=== PATIENT | male | born 1990 | race Caucasian/White ===

== ENCOUNTER 2023-02-07 14:00 | Day surgery (SDC) | payer MEDICAID, SELFPAY ==
[2023-02-07] VITALS (13 sets, daily range): BP systolic 106–146; BP diastolic 60–84; PULSE 62–112; RESP 16–84; TEMP 36.1–37.1; O2SAT 99–100; BMI 25.1
[2023-02-07] MEDS: HYDROmorphone 0.5 mg/0.5 ml inj IVP (14:00)
[2023-02-07] MEDS: 0.9 % SODIUM CHLORIDE 1000 ml 1,000 ML IV (14:15)
[2023-02-07] MEDS: KETOROLAC 30 MG/ML inj IVP (14:15)
--- NOTE | 2023-02-07 14:19 | CRLHL7_ITS ---
For Patients: As a result of the Century Cures Act, medical imaging exams and procedure reports are released immediately into your electronic medical record. You may view this report before your referring provider. If you have questions, please contact your health care provider. Indication: Left-sided peritonsillar abscess Technique: Volumetric multidetector CT images of the cervical soft tissues were obtained after the administration of low osmolar intravenous contrast. 85 cc Isovue 370 low osmolar intravenous contrast Comparison: None available. Findings: The partially visualized brain parenchyma is normal in attenuation without evidence of abnormal enhancement. The orbits and their contents are within normal limits. The paranasal sinuses are clear. The mastoid air cells are clear. The nasopharynx is unremarkable. The fossae of Rosenmuller are clear. There is demonstration of a bulky, enlarged left palatine tonsil with a 2.5 x 1.6 centimeter intra tonsillar abscess. There is moderate reactive enlargement of the right palatine tonsil and base of tongue mucosa. The hypopharynx is clear. The deep spaces of the neck are otherwise preserved. The vocal folds are nonthickened with symmetrical appearance. The thyroid gland is normal in attenuation. There are enlarged, reactive cervical lymph nodes. The jugular veins are patent. The carotid arteries demonstrate no significant atherosclerotic narrowing. The lung apices are clear. There is mild spasmodic straightening of the normal cervical lordosis without evidence of significant spondylolisthesis. Impression: Bulky enlargement of the left palatine tonsil with demonstration of a 2.5 x 1.6 centimeter intra tonsillar abscess consistent with tonsillitis and abscess formation. No evidence of peritonsillar extension. Please note that all CT scans at this facility use dose modulation, iterative reconstruction, and/or weight-based dosing when appropriate to reduce radiation dose to as low as reasonably achievable. Dictated by Benedict Silveira MD @ 02/07/2023 3:32:14 PM (Electronically Signed)
--- NOTE | 2023-02-07 14:39 | ED_ITS ---
HPI - General Adult General Date Seen: 02/07/23 Chief complaint: Dental/Oral/Mouth Injury/Pain Stated complaint: Throat pain - talked to Dr. Alba Time Seen by Provider: 02/07/23 14:03 Source: patient and family Mode of arrival: ambulatory Limitations: no limitations History of Present Illness HPI narrative: Patient is a 32-year-old gentleman who presents here with his mother for evaluation of left-sided throat swelling he was seen at the [facility] today and transferred over here, with persistent issues. He was seen any 2 hours ago at the [facility], where he had a CT scan which showed a peritonsillar abscess and had this needle there. Initially felt better for approximately a day but now is worsen. With increasing swelling decreased oral intake, low-grade fever at home along with chills. No previous history of tonsils issues. He is taking clindamycin, oxycodone, for the discomfort. Associated symptoms: fever/chills Related Data Home Medications Medication Instructions Recorded Confirmed clindamycin HCl 150 mg capsule 150 mg PO 3XD 02/07/23 02/07/23 oxycodone 5 mg tablet 5 mg PO Q8H 02/07/23 02/07/23 Allergies Allergy/AdvReac Type Severity Reaction Status Date / Time No Known Drug Allergies Allergy Verified 02/07/23 14:09 Review of Systems Status of ROS: Reports: 10 or more systems reviewed and unremarkable except as noted in History and below Exam Narrative: Exam Narrative: Patient is seen in room 4, he is in no apparent distress, speaking to me normally with normal phonation pattern, mouth opening shows 3 fingers but probably little bit of trismus, there is a large amount of swelling over the left tonsil, and soft tissue, consistent with likely an abscess. Almost encroaches on the uvula. Right side appears normal, lymphadenopathy is 1 to 2+ on the left side 1+ on the right. His neck is supple full range of motion of extension flexion is noted. Chest is clear heart sounds are normal abdomen is soft. I discussed with him we will need to get ENT involved start an IV do soft tissue neck, pain medication with Toradol and Dilaudid, fluids, NPO status, and likely an operating room visit. Const: Vital Signs, click to edit/add: Vital Signs - 24 hr 02/07/23 14:04 Temperature 97.2 F L Pulse Rate [Right Pulse Oximeter] 62 Respiratory Rate 16 Blood Pressure [Ri ght Upper Arm] 106/71 Pulse Oximetry 100 Oxygen Delivery Me thod Room Air Course Course Hospital Course: Spoke to Dr. Gary from [facility], he reviewed with me the findings common study taken to the operating room for a drainage, reviewed this with the patient, the chance of doing a tonsillectomy, he would like some Unasyn, we will do this. Patient is fit for surgery ASA 1, please consider my ER note the H&P Vital Signs Vital signs: Initial Vital Signs Temperature 97.2 F L 02/07/23 14:04 Temperature Source Temporal Artery Scan 02/07/23 14:04 Pulse Rate 62 02/07/23 14:04 Respiratory Rate 16 02/07/23 14:04 Blood Pressure 106/71 02/07/23 14:04 Blood Pressure Mean 82 02/07/23 14:04 Blood Pressure Position Sitting 02/07/23 14:04 Pulse Oximetry 100 02/07/23 14:04 Oxygen Delivery Method Room Air 02/07/23 14:04 Vital Signs Temperature 97.2 F L 02/07/23 14:04 Pulse Rate 62 02/07/23 14:04 Respiratory Rate 16 02/07/23 14:04 Blood Pressure 106/71 02/07/23 14:04 Pulse Oximetry 100 02/07/23 14:04 Oxygen Delivery Method Room Air 02/07/23 14:04 Temperature 97.2 F L 02/07/23 14:04 Pulse Rate 62 02/07/23 14:04 Respiratory Rate 16 02/07/23 14:04 Blood Pressure 106/71 02/07/23 14:04 Pulse Oximetry 100 02/07/23 14:04 Oxygen Delivery Method Room Air 02/07/23 14:04 Medical Decision Making MDM Narrative Medical decision making narrative: During this evaluation I considered multiple diagnosis good peritonsillar abscess, epiglottitis, tooth abscess, Abdiel's angina, l'mieres syndrome, strep pharyngitis, mononucleosis, cervical lymphadenopathy, salivary duct both stone in tumor. Lab Data Lab results reviewed: Yes I reviewed the patient's lab results Labs: Lab Results 02/07/23 Range/Units 14:29 WBC 8.93 (4.50-11.00) K/uL RBC 5.11 (4.30-5.90) m/uL Hgb 15.5 (13.5-17.5) gm/dL Hct 46.1 (37.0-53.0) % MCV 90 (80-100) fL MCH 30 (26-34) pg MCHC 34 (32-36) gm/dL RDW Coeff of Erin 12.6 (11.5-15.5) % Plt Count 277 (140-440) K/uL Neut % (Auto) 68.3 (42.0-72.0) % Lymph % (Auto) 17.7 L (20-44) % Evans % (Auto) 10.1 (0.0-11.0) % Eos % (Auto) 3.4 (0.0-7.0) % Baso % (Auto) 0.4 (0.0-3.0) % Neut # (Auto) 6.10 (1.7-7.0) K/uL Lymph # (Auto) 1.60 (0.90-2.90) K/uL Evans # (Auto) 0.90 (0.00-0.90) K/UL Eos # (Auto) 0.30 (0.00-0.50) K/uL Baso # (Auto) 0.04 (0.00-0.30) K/uL Sodium 137 (135-149) mmol/L Potassium 4.3 (3.6-5.1) mmol/L Chloride 97 (96-114) mmol/L Carbon Dioxide 32 (20-32) mmol/L BUN 15 (5-24) mg/dL Creatinine 0.8 (0.5-1.5) mg/dL Estimated Creat Clear 138.14 Estimated GFR 121 ml/min Glucose 82 (60-115) mg/dL Calcium 9.3 (8.4-10.6) mg/dL C-Reactive Protein 3.5 H (0.5-1.0) mg/dL Imaging Data Soft tissue neck: Attestation: I have reviewed the pertinent imaging results. My impression: Abscess that is it least 2 x 1 cm Radiologist's impression: Patient: GEORGETTE HOFFMAN Facility:?[facility] Patient ID:?[id number] Site Patient ID:?[id number]. Site :?[id number] Study:?CT ST Neck W/ 85CC [id number]-012-0/12/2023 2:37:56 PM Ordering Physician:Teddy Jacques Final Report: Indication: Left-sided peritonsillar abscess Technique: Volumetric multidetector CT images of the cervical soft tissues were obtained after the administration of low osmolar intravenous contrast. 85 cc Isovue 370 low osmolar intravenous contrast Comparison: None available. Findings: The partially visualized brain parenchyma is normal in attenuation without evidence of abnormal enhancement. The orbits and their contents are within normal limits. The paranasal sinuses are clear. The mastoid air cells are clear. The nasopharynx is unremarkable. The fossae of Rosenmuller are clear. There is demonstration of a bulky, enlarged left palatine tonsil with a 2.5 x 1.6 centimeter intra tonsillar abscess. There is moderate reactive enlargement of the right palatine tonsil and base of tongue mucosa. The hypopharynx is clear. The deep spaces of the neck are otherwise preserved. The vocal folds are nonthickened with symmetrical appearance. The thyroid gland is normal in attenuation. There are enlarged, reactive cervical lymph nodes. The jugular veins are patent. The carotid arteries demonstrate no significant atherosclerotic narrowing. The lung apices are clear. There is mild spasmodic straightening of the normal cervical lordosis without evidence of significant spondylolisthesis. Impression: Bulky enlargement of the left palatine tonsil with demonstration of a 2.5 x 1.6 centimeter intra tonsillar abscess consistent with tonsillitis and abscess formation. No evidence of peritonsillar extension. Please note that all CT scans at this facility use dose modulation, iterative reconstruction, and/or weight-based dosing when appropriate to reduce radiation dose to as low as reasonably achievable. Dictated by Benedict Silveira MD @ 02/07/2023 3:32:14 PM (Electronic Signature) Discharge Plan Discharge Clinical Impression: Abscess, peritonsillar Patient Disposition: XFER to OR Condition: Stable Prescriptions: No Action clindamycin HCl 150 mg capsule 150 mg PO 3XD oxycodone 5 mg tablet 5 mg PO Q8H Follow Up/Referrals: Provider,Not a Local [Primary Care Provider] -
[2023-02-07 14:42] LABS: Basophils Absolute Auto 0.04 K/uL (0.00-0.30); Basophils Percent Auto 0.4 % (0.0-3.0); Eosinophils Percent Auto 3.4 % (0.0-7.0); Hematocrit 46.1 % (37.0-53.0); Hemoglobin* 15.5 gm/dL (13.5-17.5); Immature Granulocytes Abs Auto 0.01 K/uL (0.00-0.30); Immature Granulocytes Pct Auto 0.1 %; Lymphocytes Percent Auto 17.7 % (20-44); Mean Corpuscular HGB Conc 34 gm/dL (32-36); Mean Corpuscular Hemoglobin 30 pg (26-34); Mean Corpuscular Volume 90 fL (80-100); Monocytes Percent Auto 10.1 % (0.0-11.0); Neutrophils Percent Auto 68.3 % (42.0-72.0); Platelet Count* 277 K/uL (140-440); RDW Coefficient of Variation % 12.6 % (11.5-15.5); Red Blood Count 5.11 m/uL (4.30-5.90); White Blood Count* 8.93 K/uL (4.50-11.00)
[2023-02-07 14:44] LABS: Slide Review Reflex No
[2023-02-07 14:56] LABS: Chloride* 97 mmol/L (96-114); Potassium* 4.3 mmol/L (3.6-5.1); Sodium* 137 mmol/L (135-149)
[2023-02-07 14:59] LABS: Creatinine* 0.8 mg/dL (0.5-1.5); Est. Creatinine Clearance* 138.14; Estimated Glomerular Filt Rate 121 ml/min
[2023-02-07 15:00] LABS: Blood Urea Nitrogen* 15 mg/dL (5-24); Calcium* 9.3 mg/dL (8.4-10.6); Carbon Dioxide* 32 mmol/L (20-32); Glucose* 82 mg/dL (60-115)
[2023-02-07 15:03] LABS: C Reactive Protein* 3.5 mg/dL (0.5-1.0)
[2023-02-07] MEDS: AMPICILLIN/SULBACTAM 3 GM in 0.9 % SODIUM CHLORIDE Mini-bag 100 ML IVPB (15:59)
--- NOTE | 2023-02-07 18:54 | P.ANES_ITS ---
Anesthesia Charges Start Date/Time Anesthesia Start Date: 02/07/23 Anesthesia Start Time: 17:51 Stop Date/Time Anesthesia Stop Date: 02/07/23 Anesthesia Stop Time: 18:53 Summary Emergency: [employer]
--- NOTE | 2023-02-07 18:58 | PM.PROC ---
Procedure Note Date Seen: 02/07/23 Date of procedure: 02/07/23 Will [facility] bill your pro fee for this procedure?: Yes Pre-op diagnosis: left peritonsil abscess Post-op diagnosis: same Procedure: joel tonsillectomy Procedure Description: Patient was seen in the emergency room for sore throat and a CT scan of the neck revealed a 2.5 x 1.6 cm intra tonsillar and peritonsillar abscess on the left side. For this reason we elected to proceed to the operating room for incision and drainage with possible tonsillectomy. Discussed goals, risks and potential complications of procedure with patient and mother. Discussed possible Joel tonsillectomy left. Discussed recommendation of removal of right tonsil at the same time. They elected to proceed and signed consent was obtained. Patient was brought to the operating room and after adequate general oral endotracheal anesthesia, was prepped and draped in the supine Marie position. Mouth gag was inserted in the oropharynx was exposed. Had enlarged left tonsil with peritonsillar erythema. CT scan noted the abscess in the superior midportion of the tonsil and peritonsillar region. Incision was made in the anterior pillar between superior midportion. With blunt dissection along tonsil capsule I did enter into a large cavity. There was no obvious pus. Given the size incision in the size of his cavity elected to proceed with tonsillectomy. The remainder of the tonsil was dissected free with electro blunt dissection using the spatula tip cautery and suction cautery. There was significant amount of edema of the muscle and the tonsil tissue. Hemostasis was achieved with the suction cautery. The right tonsil was smaller and exophytic. Tonsil was grasped with the forceps and with medial traction anterior-posterior pillar was incised and the tonsil was dissected free with these past tip cautery. Hemostasis was achieved with the suction cautery. Patient tolerated procedure well, was awakened and extubated in the operating room and returned to recovery room in stable condition. Right left tonsils were sent to pathology. Estimated blood loss was less than 5 mL. Anesthesia: LENOREA Surgeon: Niyah Gary Pathology: specimen obtained, sent to pathology Condition: stable Disposition: PACU
--- NOTE | 2023-02-07 19:23 | SUR.PHASEI ---
patient met discharge criteria per Renny Doe (anesthesia)
--- NOTE | 2023-02-08 00:41 | PC.NURSE ---
Patient admitted to floor at 1923 post tonsillectomy and abscess drainage. Alert and oriented x 4, reports pain at 3/10, pain is acceptable at 3. No bleeding noted. bowel sounds active x 4 quadrants. Lung sounds clear, denies any shortness of breath or cough. Tolerating ice chips and water, denies any nausea or vomiting. Mother bedside, she will be with patient to monitor. Discharged at 2105, ambulated and in private vehicle.
== END 2023-02-07 21:10 | disposition home or self-care (01) ==
LOC: ED 16:03 → SS 16:21
PROVIDERS: Emergency Provider Family Medicine; Visit Provider Otolaryngology
PROC: 0C9PXZZ Drainage of Tonsils, External Approach (ICD-10-PCS; CPT 42700; principal; 2023-02-07 17:30)
DX: J36 Peritonsillar abscess (principal)
CPT/HCPCS: 42826; 00170; 36415; 70491; 80048; 85025; 86140; 88304; 99140; 99284; J0295; J0330; J1100; J1170; J1200; J1885; J2405; J2704; J3010; J7030; Q9967

== ENCOUNTER 2023-07-30 11:39 | Emergency (ER) | payer MEDICAID, SELFPAY ==
[2023-07-30 11:48] VITALS: BP 117/77; PULSE 104; RESP 20; TEMP 36.8; BMI 24.4
--- NOTE | 2023-07-30 12:00 | ED_ITS ---
HPI - General Adult General Chief complaint: Urogenital Problems, Male Stated complaint: Suspected kidney infection Time Seen by Provider: 07/30/23 11:40 History of Present Illness HPI narrative: Patient is a 33 year white male who yesterday report he had onset of dysuria some gross hematuria, some body aches chills. Some low back discomfort no CVA area tenderness. He has been healthy other than a history of a peritonsillar abscess. Takes no home medications. He is feeling better today, less dysuria, less blood in his urine, less body aches. But he still feels a little bit ill. Presents to ED for evaluation he is here with his significant other. He has not had a head history kidney stones or bladder infections, he has been generally quite healthy. Related Data Home Medications Medication Instructions Recorded Confirmed clindamycin HCl 150 mg capsule 150 mg PO 3XD 02/07/23 02/07/23 oxycodone 5 mg tablet 5 mg PO Q8H 02/07/23 02/07/23 Previous Rx's Medication Instructions Recorded oxycodone 5 mg/5 mL oral solution 5 mg (5 mL) PO Q4H PRN pain #200 mL 02/07/23 amoxicillin 500 mg-potassium 1 tab PO BID #14 tabs 07/30/23 clavulanate 125 mg tablet (Augmentin) Allergies Allergy/AdvReac Type Severity Reaction Status Date / Time No Known Drug Allergies Allergy Verified 02/07/23 14:09 Review of Systems Status of ROS: Reports: 6 or more systems reviewed and unremarkable except as noted in History and below Exam Narrative: Exam Narrative: Objective: In general patient is no apparent distress Vital signs look within normal limits others pulse slightly elevated 104 He is afebrile HEENT is unremarkable Chest is clear Pulse regular Abdomen benign soft nontender Ext negative CVA tenderness Good peripheral perfusion extremities. Const: Vital Signs, click to edit/add: Vital Signs - 24 hr 07/30/23 11:48 07/30/23 14:14 Temperature 98.3 F Pulse Rate [Pulse Oximeter] 104 H 103 H Respiratory Rate 20 16 Blood Pressure [Ri ght Upper Arm] 117/77 125/79 Pulse Oximetry 100 Oxygen Delivery Me thod Room Air Course Vital Signs Vital signs: Initial Vital Signs Temperature 98.3 F 07/30/23 11:48 Temperature Source Temporal Artery Scan 07/30/23 11:48 Pulse Rate 104 H 07/30/23 11:48 Pulse Strength 2+ Slightly Diminished 07/30/23 11:48 Respiratory Rate 20 07/30/23 11:48 Blood Pressure 117/77 07/30/23 11:48 Blood Pressure Mean 90 07/30/23 11:48 Blood Pressure Position Sitting 07/30/23 11:48 Vital Signs Temperature 98.3 F 07/30/23 11:48 Pulse Rate 104 H 07/30/23 11:48 Respiratory Rate 20 07/30/23 11:48 Blood Pressure 117/77 07/30/23 11:48 Temperature 98.3 F 07/30/23 11:48 Pulse Rate 103 H 07/30/23 14:14 Respiratory Rate 16 07/30/23 14:14 Blood Pressure 125/79 07/30/23 14:14 Pulse Oximetry 100 07/30/23 14:14 Oxygen Delivery Method Room Air 07/30/23 14:14 Medications Administered Medications: Discontinued Medications Generic Name Dose Route Start Last Admin Trade Name Freq PRN Reason Stop Dose Admin Acetaminophen 1,000 mg 07/30/23 14:15 07/30/23 14:18 Acetaminophen 500 Mg Tablet PO 07/30/23 14:16 1,000 mg ONCE ONE Administration Ceftriaxone Sodium 2 gm/ 100 mls @ 200 mls/hr 07/30/23 13:41 07/30/23 14:27 Sodium Chloride IVPB 07/30/23 13:42 Infused ONCE ONE Infusion Medical Decision Making [facility] Narrative Medical decision making narrative: [age] white male with gross hematuria, chills body aches, rule out UTI. Patient will get lab studies, CRP, CBC, electrolytes. Will get a UA urine cul ture. Will get COVID/influenza/RSV as well. He has not really had a cough or upper respiratory symptoms but I think given his chills fever and body aches I think could be appropriate to rule out influenza. Will check his urinalysis preps rule out a UTI versus pyelonephritis. Does not appear to have significant CVA tenderness so I think likely this is not pyelonephritis. Please see addendum dictation. Addendum 1:46 p.m.: The patient has hematuria and pyuria. Would recommend a CT scan of his abdomen and pelvis without contrast to make sure that of a kidney stone or some kind of pyelonephritis perinephric stranding. Will give IV Rocephin now. And disposition pending CT findings. Addendum 2:[address] scan shows some nonobstructing punctate tiny stones within the kidneys, there is no obstructing stone, appendix appears normal. Patient be discharged home with urinary tract infection Augmentin for home and he got IV Rocephin here, follow-up with primary care in 2-3 days for recheck return sooner problems or concerns. Light activity recommended for the next couple of days. Lab Data Labs: Lab Results 07/30/23 07/30/23 Range/Units 12:00 13:15 WBC 8.05 (4.50-11.00) K/uL RBC 5.22 (4.30-5.90) m/uL Hgb 15.7 (13.5-17.5) gm/dL Hct 46.4 (37.0-53.0) % MCV 89 (80-100) fL MCH 30 (26-34) pg MCHC 34 (32-36) gm/dL RDW Coeff of Erin 12.8 (11.5-15.5) % Plt Count 192 (140-440) K/uL Neut % (Auto) 88.2 H (42.0-72.0) % Lymph % (Auto) 6.5 L (20-44) % Yates % (Auto) 4.1 (0.0-11.0) % Eos % (Auto) 0.6 (0.0-7.0) % Baso % (Auto) 0.5 (0.0-3.0) % Neut # (Auto) 7.10 H (1.7-7.0) K/uL Lymph # (Auto) 0.50 L (0.90-2.90) K/uL Yates # (Auto) 0.30 (0.00-0.90) K/UL Eos # (Auto) 0.05 (0.00-0.50) K/uL Baso # (Auto) 0.04 (0.00-0.30) K/uL Abs Immat Gran (auto) 0.01 (0.00-0.30) K/uL Imm/Tot Granulo (auto) 0.1 % Sodium 135 (135-149) mmol/L Potassium 4.0 (3.6-5.1) mmol/L Chloride 99 (96-114) mmol/L Carbon Dioxide 31 (20-32) mmol/L Anion Gap 5 L (7-15) mEq/L BUN 12 (5-24) mg/dL Creatinine 1.0 (0.5-1.5) mg/dL Estimated Creat Clear 109.50 Estimated GFR 103 ml/min Glucose 144 H (60-115) mg/dL Calcium 9.2 (8.4-10.6) mg/dL C-Reactive Protein 14.8 H (0.5-1.0) mg/dL Urine Color Red A (Yellow) Urine Appearance Slightly Cloudy A (Clear) Urine pH 5.5 (5.0-8.5) Ur Specific Landenberg 1.020 (1.000-1.030) Urine Protein 1+ A (Negative) Urine Glucose (UA) Trace A (Negative) Urine Ketones Negative (Negative) Urine Blood 1+ A (Negative) Urine Nitrite Positive A (Negative) Urine Bilirubin 1+ A (Negative) Urine Urobilinogen 1.0 (0.2-1.0) Ur Leukocyte Esterase Trace A (Negative) Urine RBC 5-10 A (0-2) Urine WBC 10-25 A (0-5) Ur Squamous Epith Cells Few (None-Few) Urine Bacteria Many A (None) SARS-CoV-2 (PCR) Negative SARS-CoV-2 (Negative) Influenza Type A (PCR) Negative PCR FLU A (Negative) Influenza Type B (PCR) Negative PCR FLU B (Negative) RSV (PCR) Negative PCR RSV (Negative) Discharge Plan Discharge Clinical Impression: Hematuria, Body aches, Urinary tract infection Patient Disposition: Home w/ Parent or Adult Condition: Stable Additional Instructions: Rest, fluids, recheck with primary care in 2-3 days, return sooner to ER sooner problems or concerns. Antibiotics at home as prescribed. Activity Level: Light activity Discharge Diet: Regular Prescriptions: New amoxicillin-pot clavulanate [Augmentin] 500-125 mg tablet 1 tab PO BID Qty: 14 0RF No Action clindamycin HCl 150 mg capsule 150 mg PO 3XD oxycodone 5 mg tablet 5 mg PO Q8H oxycodone 5 mg/5 mL solution 5 mg PO Q4H PRN (Reason: pain) Qty: 200 0RF Follow Up/Referrals: Provider,Not a Local [Primary Care Provider] - Stand Alone Forms: MyHealth Info Instructions
[2023-07-30 12:19] LABS: Basophils Absolute Auto 0.04 K/uL (0.00-0.30); Basophils Percent Auto 0.5 % (0.0-3.0); Eosinophils Absolute Auto 0.05 K/uL (0.00-0.50); Eosinophils Percent Auto 0.6 % (0.0-7.0); Hematocrit 46.4 % (37.0-53.0); Hemoglobin* 15.7 gm/dL (13.5-17.5); Immature Granulocytes Abs Auto 0.01 K/uL (0.00-0.30); Immature Granulocytes Pct Auto 0.1 %; Lymphocytes Percent Auto 6.5 % (20-44); Mean Corpuscular HGB Conc 34 gm/dL (32-36); Mean Corpuscular Hemoglobin 30 pg (26-34); Mean Corpuscular Volume 89 fL (80-100); Monocytes Percent Auto 4.1 % (0.0-11.0); Neutrophils Percent Auto 88.2 % (42.0-72.0); Platelet Count* 192 K/uL (140-440); RDW Coefficient of Variation % 12.8 % (11.5-15.5); Red Blood Count 5.22 m/uL (4.30-5.90); White Blood Count* 8.05 K/uL (4.50-11.00)
[2023-07-30 12:25] LABS: Slide Review Reflex No
[2023-07-30 12:32] LABS: Chloride* 99 mmol/L (96-114)
[2023-07-30 12:33] LABS: Sodium* 135 mmol/L (135-149)
[2023-07-30 12:36] LABS: Anion Gap 5 mEq/L (7-15); Blood Urea Nitrogen* 12 mg/dL (5-24); Carbon Dioxide* 31 mmol/L (20-32); Estimated Glomerular Filt Rate 103 ml/min
[2023-07-30 12:37] LABS: Calcium* 9.2 mg/dL (8.4-10.6); Glucose* 144 mg/dL (60-115)
[2023-07-30 12:50] LABS: C Reactive Protein* 14.8 mg/dL (0.5-1.0)
[2023-07-30 13:20] LABS: PCR FLU A Negative PCR FLU A (Negative); PCR FLU B Negative PCR FLU B (Negative); PCR RSV Negative PCR RSV (Negative)
[2023-07-30 13:28] LABS: SARS PCR* Negative SARS-CoV-2 (Negative)
[2023-07-30 13:30] LABS: Appearance Urine Slightly Cloudy (Clear); Bilirubin Urine 1+ (Negative); Blood Urine 1+ (Negative); Color Urine Red (Yellow); Glucose Urine Trace (Negative); Ketones Urine Negative (Negative); Leukocyte Esterase Urine Trace (Negative); Nitrite Urine Positive (Negative); Protein Urine 1+ (Negative); pH Urine 5.5 (5.0-8.5)
[2023-07-30 13:38] LABS: Bacteria Urine Many; Squamous Epithelial Cell Urine Few (None-Few)
--- NOTE | 2023-07-30 13:41 | CRLHL7_ITS ---
For Patients: As a result of the Century Cures Act, medical imaging exams and procedure reports are released immediately into your electronic medical record. You may view this report before your referring provider. If you have questions, please contact your health care provider. Indication: Back pain and urinary tract infection Technique: CT abdomen and pelvis acquired without IV contrast. Coronal and sagittal reformations. Comparison: None available Findings: Lack of IV contrast limits evaluation of the solid abdominal organs. Kidneys/ureters/bladder: 2 mm nonobstructing punctate stone in lower pole of right kidney. 1-2 mm stone in the interpolar region of left kidney. No hydronephrosis bilaterally. There are no stones identified along the course of either ureter. Urinary bladder is decompressed but otherwise unremarkable. Prostate size is within normal limits. Liver/bile ducts/gallbladder: Unremarkable noncontrast appearance of liver. Normal gallbladder. Pancreas: Unremarkable. Spleen: Unremarkable. Adrenals: Unremarkable. Bowel/Mesentery: No obstruction. No bowel wall thickening. No free air. No free fluid. Normal appendix. Lymph nodes: No enlarged mesenteric, retroperitoneal, pelvic, or inguinal lymphadenopathy. Vasculature: No aortic aneurysm. Lower chest: Visualized lung bases are clear. Bones: No acute or aggressive appearing osseous lesions. Impression: 1. No cause of acute abdominal pain identified in this limited noncontrast examination. Normal appendix. 2. Punctate bilateral nonobstructing stones identified. No hydronephrosis or ureterolithiasis. Please note that all CT scans at this facility use dose modulation, iterative reconstruction, and/or weight-based dosing when appropriate to reduce radiation dose to as low as reasonably achievable. Dictated by Salvador Butt MD @ 07/30/2023 2:51:02 PM (Electronically Signed)
[2023-07-30] MEDS: cefTRIAXone 2 GM in 0.9 % SODIUM CHLORIDE Mini-bag 100 ML IVPB (13:51)
[2023-07-30 14:14] VITALS: BP 125/79; PULSE 103; RESP 16; O2SAT 100
[2023-07-30] MEDS: ACETAMINOPHEN 500 MG TABLET 1000 MG PO (14:18)
== END 2023-07-30 15:00 | disposition home or self-care (01) ==
PROVIDERS: Emergency Provider Family Medicine
DX: N39.0 Urinary tract infection, site not specified (principal); R31.9 Hematuria, unspecified; R52 Pain, unspecified
CPT/HCPCS: 36415; 74176; 80048; 81001; 85025; 86140; 87086; 87186; 87631; 96365; 99284; A9270; J0696

== ENCOUNTER 2023-09-01 13:49 | Emergency (ER) | payer OTHER, SELFPAY ==
[2023-09-01 14:07] VITALS: BP 116/73; PULSE 105; RESP 16; TEMP 37; O2SAT 97; BMI 24.4
--- NOTE | 2023-09-01 15:12 | ED.WOUNDLAC ---
HPI - Wound/Laceration General Chief Complaint: Laceration/Wound Stated Complaint: Left hand fingers lac Time Seen by Provider: 09/01/23 14:44 History of Present Illness HPI narrative: This 33-year-old male was at work cutting a exhaust pipe when it slipped and fell onto his left hand. He has a laceration over the MP joints on the dorsal aspect of his left 4th and 5th fingers. His tetanus status is up-to-date. Related Data Home Medications Medication Instructions Recorded Confirmed clindamycin HCl 150 mg capsule 150 mg PO 3XD 02/07/23 02/07/23 oxycodone 5 mg tablet 5 mg PO Q8H 02/07/23 02/07/23 Previous Rx's Medication Instructions Recorded oxycodone 5 mg/5 mL oral solution 5 mg (5 mL) PO Q4H PRN pain #200 mL 02/07/23 amoxicillin 500 mg-potassium 1 tab PO BID #14 tabs 07/30/23 clavulanate 125 mg tablet (Augmentin) Allergies Allergy/AdvReac Type Severity Reaction Status Date / Time No Known Drug Allergies Allergy Verified 09/01/23 14:10 Review of Systems Status of ROS: Reports: 10 or more systems reviewed and unremarkable except as noted in History and below Narrative: Constitutional: No fevers, no weight gain or loss. Eyes: No discharge. No vision changes. HENT: No congestion, no sore throat, no ear pain. Cardiovascular: No chest pain, no palpitations. Respiratory: No shortness of breath, no wheezes, no cough. Gastrointestinal: No abdominal pain, no vomiting, no diarrhea. Genitourinary: No dysuria, no hematuria. Musculoskeletal: Normal range of motion. Skin: No rashes, no pruritis. Neurological: No dizziness, weakness, sensory change, speech change. Endo/Heme/Allergies: No bruising or bleeding. No polydipsia. Pysch: no suicidality, no anxiety, no insomnia. All other systems reviewed and are negative. Exam Narrative: Exam Narrative: Constitutional: Well-developed, well-nourished, no acute distress. HEENT: Normocephalic, atraumatic. Neck: Normal range of motion. Nontender. Supple. Heart: Intact distal pulses. Lungs: No chest discomfort. No wheezes, rhonchi, or rales. Abdomen: Nontender. Back: Normal range of motion. Extremities: Normal range of motion. 2 cm linear laceration over the dorsal aspect of the MP joint of the 4th finger on the left-hand and a superficial abrasion over the same area of the 5th finger on the same hand. Skin: Intact. No rash. Warm. No erythema or pallor. Neurologic: No altered sensation. No weakness. Alert and oriented. Psychiatric: No suicidality. No anxiety or depression. No insomnia. Nursing notes and vitals signs are reviewed. Const: Vital Signs, click to edit/add: Vital Signs - 24 hr 09/01/23 14:07 Temperature 98.6 F Pulse Rate [Right Pulse Oximeter] 105 H Respiratory Rate 16 Blood Pressure [Ri ght Upper Arm] 116/73 Pulse Oximetry 97 Oxygen Delivery Me thod Room Air Course Vital Signs Vital signs: Initial Vital Signs Temperature 98.6 F 09/01/23 14:07 Temperature Source Temporal Artery Scan 09/01/23 14:07 Pulse Rate 105 H 09/01/23 14:07 Pulse Rhythm Regular 09/01/23 14:07 Pulse Strength 3+ Normal 09/01/23 14:07 Respiratory Rate 16 09/01/23 14:07 Blood Pressure 116/73 09/01/23 14:07 Blood Pressure Mean 87 09/01/23 14:07 Blood Pressure Position Sitting 09/01/23 14:07 Pulse Oximetry 97 09/01/23 14:07 Oxygen Delivery Method Room Air 09/01/23 14:07 Vital Signs Temperature 98.6 F 09/01/23 14:07 Pulse Rate 105 H 09/01/23 14:07 Respiratory Rate 16 09/01/23 14:07 Blood Pressure 116/73 09/01/23 14:07 Pulse Oximetry 97 09/01/23 14:07 Oxygen Delivery Method Room Air 09/01/23 14:07 Temperature 98.6 F 09/01/23 14:07 Pulse Rate 105 H 09/01/23 14:07 Respiratory Rate 16 09/01/23 14:07 Blood Pressure 116/73 09/01/23 14:07 Pulse Oximetry 97 09/01/23 14:07 Oxygen Delivery Method Room Air 09/01/23 14:07 MDM - Wound/Laceration MDM Narrative Medical decision making narrative: This patient comes in with a laceration to his left hand as described above. His tetanus status is up-to-date. The wound was cleansed and his hand function was evaluated and found to be completely normal. There is no sign of nerve or tendon injury. I did describe repair options with the patient who elected to have Dermabond applied. This was done with excellent results and followed with a Band-Aid. Instructions regarding wound care were given. Discharge Plan Discharge Clinical Impression: Laceration Patient Disposition: Home, Self-Care Condition: Improved Additional Instructions: Keep wound clean and dry. Increase activity as tolerated. Follow up with MD return if worsening. Prescriptions: No Action amoxicillin-pot clavulanate [Augmentin] 500-125 mg tablet 1 tab PO BID Qty: 14 0RF clindamycin HCl 150 mg capsule 150 mg PO 3XD oxycodone 5 mg tablet 5 mg PO Q8H oxycodone 5 mg/5 mL solution 5 mg PO Q4H PRN (Reason: pain) Qty: 200 0RF Follow Up/Referrals: Provider,Not a Local [Primary Care Provider] - Stand Alone Forms: [place] Info Instructions
[2023-09-01] MEDS: TETANUS/DIPHTH/PERTUSSIS 0.5 ML SYRINGE IM (15:22)
== END 2023-09-01 15:26 | disposition home or self-care (01) ==
PROVIDERS: Emergency Provider Emergency Medicine Emergency Medical Services
DX: S61.412A Laceration without foreign body of left hand, initial encounter (principal); W45.8XXA Other foreign body or object entering through skin, initial encounter
CPT/HCPCS: 12001; 87631; 90471; 90715; 99284

== ENCOUNTER 2023-11-29 11:42 | Emergency (ER) | payer OTHER, SELFPAY ==
[2023-11-29 11:47] VITALS: BP 113/66; PULSE 88; RESP 16; TEMP 37; O2SAT 99; BMI 23.0
--- NOTE | 2023-11-29 12:49 | ED.GENADULT ---
HPI - General Adult General Date Seen: 11/29/23 Chief complaint: Laceration/Wound Stated complaint: finger laceration Time Seen by Provider: 11/29/23 11:48 Source: patient Mode of arrival: ambulatory Limitations: no limitations History of Present Illness HPI narrative: Patient is a 33-year-old male who was at work, sustained a laceration on his right 4th finger from a piece of sheet metal. Bleeding controlled, he notes that it bled and hurt a lot right away but now that he is looking at it he notes that it is not that bad. He has no complaints of numbness or loss of function. Tetanus was updated a couple months ago. Related Data Home Medications Medication Instructions Recorded Confirmed clindamycin HCl 150 mg capsule 150 mg PO 3XD 02/07/23 02/07/23 oxycodone 5 mg tablet 5 mg PO Q8H 02/07/23 02/07/23 Previous Rx's Medication Instructions Recorded oxycodone 5 mg/5 mL oral solution 5 mg (5 mL) PO Q4H PRN pain #200 mL 02/07/23 amoxicillin 500 mg-potassium 1 tab PO BID #14 tabs 07/30/23 clavulanate 125 mg tablet (Augmentin) Allergies Allergy/AdvReac Type Severity Reaction Status Date / Time No Known Drug Allergies Allergy Verified 09/01/23 14:10 Exam Narrative: Exam Narrative: Vital signs reviewed In general, alert well-appearing male. Extremities: Examination of the right 4th finger shows a superficial laceration just proximal to the PIP joint. Flexion extension at the PIP and MCP are intact. Distal CMS normal. Wound extends just into the dermis. It is just under a cm in total length. Const: Vital Signs, click to edit/add: Vital Signs - 24 hr 11/29/23 11:47 Temperature 98.6 F Pulse Rate [Pulse Oximeter] 88 Respiratory Rate 16 Blood Pressure [Ri ght Upper Arm] 113/66 Pulse Oximetry 99 Oxygen Delivery Me thod Room Air Documenting provider has reviewed patient's vital signs: yes Course Course ED Course: He did well with Dermabond to a finger laceration a couple of months ago. I think it is reasonable to use given the superficiality of this wound. Procedure note: Wound was cleaned, explored no evidence of injury to deeper structures. Closed with Dermabond with good result. Reviewed wound care, Dermabond care. I have given him a note to be off work today, ideally would keep this clean and protected while it heals. He takes apart cars for a living and says it is difficult for him to keep his hands very protected as he does not like to work in gloves. Return for signs of infection. Vital Signs Vital signs: Initial Vital Signs Temperature 98.6 F 11/29/23 11:47 Temperature Source Temporal Artery Scan 11/29/23 11:47 Pulse Rate 88 11/29/23 11:47 Respiratory Rate 16 11/29/23 11:47 Blood Pressure 113/66 11/29/23 11:47 Blood Pressure Mean 81 11/29/23 11:47 Pulse Oximetry 99 11/29/23 11:47 Oxygen Delivery Method Room Air 11/29/23 11:47 Vital Signs Temperature 98.6 F 11/29/23 11:47 Pulse Rate 88 11/29/23 11:47 Respiratory Rate 16 11/29/23 11:47 Blood Pressure 113/66 11/29/23 11:47 Pulse Oximetry 99 11/29/23 11:47 Oxygen Delivery Method Room Air 11/29/23 11:47 Temperature 98.6 F 11/29/23 11:47 Pulse Rate 88 11/29/23 11:47 Respiratory Rate 16 11/29/23 11:47 Blood Pressure 113/66 11/29/23 11:47 Pulse Oximetry 99 11/29/23 11:47 Oxygen Delivery Method Room Air 11/29/23 11:47 Discharge Plan Discharge Clinical Impression: Finger laceration Patient Disposition: Home, Self-Care Condition: Improved Instructions: Finger Laceration (ED), Skin Adhesive Care (ED) Additional Instructions: Return for signs of infection. Prescriptions: No Action amoxicillin-pot clavulanate [Augmentin] 500-125 mg tablet 1 tab PO BID Qty: 14 0RF clindamycin HCl 150 mg capsule 150 mg PO 3XD oxycodone 5 mg tablet 5 mg PO Q8H oxycodone 5 mg/5 mL solution 5 mg PO Q4H PRN (Reason: pain) Qty: 200 0RF Follow Up/Referrals: Provider,Not a Local [Primary Care Provider] - Stand Alone Forms: [facility] Info Instructions
== END 2023-11-29 12:13 | disposition home or self-care (01) ==
LOC: ED 12:08
PROVIDERS: Emergency Provider Emergency Medicine
DX: S61.214A Laceration without foreign body of right ring finger without damage to nail, initial encounter (principal); W45.8XXA Other foreign body or object entering through skin, initial encounter
CPT/HCPCS: 12001; 99282; 99283

== ENCOUNTER 2024-09-30 18:05 | Emergency (ER) | payer BC, SELFPAY ==
--- OUTSIDE RECORDS SUMMARY | 2024-09-30 18:07 | XMS_ITS | Clinical Summary ---
Author Organization [facility] Address [address] [place] [address]. [place] [address] Care Team Providers Care Managed Care Analyst Name Role Phone No Ref-Primary, Physician Primary Care Provider Allergies No known active allergies Medications triamcinolone 0.1 % EX external ointmentIndicati ons:Other eczema,Eczema, dyshidrotic Apply topically 2 times daily 80 g 1 0 Active Active Problems Problem Noted Date Diagnosed Date Fracture of mandible 04/09/2013 Tobacco use disorder 10/06/2011 Immunizations Name Administration Dates Next Due COVID-19 MONOVALENT 12+ (Pfizer) 03/30/2021 DTAP (<7y) 12/10/1996 HEPATITIS A (PEDS 12M-18Y) 05/08/2008,11/17/2006 Hepatitis B, Peds 02/12/2003,01/11/2002,11/28/19 02 MMR 11/27/2001 Meningococcal (Menomune ) 11/17/2006 TDAP Vaccine (Adacel) 04/02/2013,02/06/2009 Family History Medical History Relation Comments Atrial fibrillation Father Cerebrovascular Disease Father Diabetes Father Hypertension Father Lung Cancer Paternal Grandfather Lung Cancer Paternal Grandmother Relation Status Comments Father Alive Mother Alive Paternal Grandfather Paternal Grandmother Social History Tobacco Use Types Packs/Day Years Used Date Smoking Tobacco: Every Day Smokeless Tobacco: Never Tobacco Cessation:Counseling Given: No Alcohol Use Standard Drinks/Week Comments Yes 0 (1 standard drink = 0.6 oz pur e alcohol) PHQ-2 Answer Date Recorded PHQ-2 Score 0 02/14/2019 Sex and Gender Information Value Date Recorded Sex Assigned at Not on file 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 Gender Identity Not on file Sexual Orientation Not on file Last Filed Vital Signs Vital Sign Reading Time Taken Comments Blood Pressure 120/70 10/19/2019 2:48 PM SAILING MASTER Pulse 97 10/19/2019 2:48 PM SAILING MASTER Temperature 36.8 C (98.2 F) 10/19/2019 2:48 PM SAILING MASTER Respiratory Rate 16 10/19/2019 2:48 PM SAILING MASTER Oxygen Saturation 98% 10/19/2019 2:48 PM SAILING MASTER Inhaled Oxygen Concentration - - Weight 74.4 kg (164 lb) 10/19/2019 2:48 PM SAILING MASTER Height 177.8 cm (5' 10) 10/19/2019 2:48 PM SAILING MASTER Body Mass Index 23.53 10/19/2019 2:48 PM SAILING MASTER Plan of Treatment Health Maintenance Due Date Last Done Comments ADVANCE CARE PLANNING 1991 ANNUAL REVIEW OF HM ORDERS 1991 YEARLY PREVENTIVE VISIT 1991 HIV SCREENING 2006 HEPATITIS C SCREENING 2009 DTAP/TDAP/TD IMMUNIZATION (4 - Td or Tdap) 04/02/2023 04/02/2013, 02/06/2009, 12/10/1996 PHQ-2 (once per calendar year) 2023 02/14/2019, 02/14/2019, 07/31/2018 COVID-19 Vaccine (2 - 2023-2 5 season) 2024 03/30/2021 INFLUENZA VACCINE (#1) 2024 RSV VACCINE (1 - 1-dose 75+ series) 2066 HEPATITIS B IMMUNIZATION Completed 003, 01/11/2002, 11/27/2001 MENINGITIS IMMUNIZATION Aged Out 11/17/2006 No l onger eligible based on patient's age to complete this topic HPV IMMUNIZATION Aged Out No longer e ligible based on patient's age to complete this topic Pneumococcal Vaccine: Pediatrics (0 to 5 Years) and At-Risk Patients (6 to 49 Years) Aged Out No longer eligible b ased on patient's age to complete this topic RSV MONOCLONAL ANTIBODY Aged Out No l onger eligible based on patient's age to complete this topic Care Teams Managed Care Analyst Relationship Specialty Start Date End Date No Ref-Primary, Physician PCP - General 10/19/19
--- OUTSIDE RECORDS SUMMARY | 2024-09-30 18:07 | XMS_ITS | Clinical Summary ---
Author Organization [facility] Address [place], [place] [address] Care Team Providers Care Brush Polisher Name Role Phone Pcp, No Primary Care Provider Unavailabl e Allergies No known active allergies Medications ibuprofen (ADVIL; MOTRIN) 600 mg tablet TAKE 1 TABLET BY MOUTH 3 TIMES PER DAY 09/29/2022 Active Active Problems Problem Noted Date Diagnosed Date Closed fracture of mandible 04/09/2013 Tobacco use disorder 10/06/2011 Immunizations Name Administration Dates Next Due DTaP 12/10/1996 Hepatitis A (Peds) 05/08/2008,11/17/2006 Hepatitis B (Peds) 02/12/2003,01/11/2002, 002 MMR 11/27/2001 Meningococcal Vaccine (Menomune) 11/17/2006 Td (Age >=7 Years) 02/12/2003 Tdap 09/01/2023,04/02/2013,02/06/2009 Social History Tobacco Use Types Packs/Day Years Used Date Smoking Tobacco: Every Day Cigarettes 0.3 2 Started: 08/29/2008 Passive Smoke Exposure: Never Smokeless Tobacco: Never Tobacco Cessation:Ready to Q uit: No; Counseling Given: Yes Alcohol Use Standard Drinks/Week Comments Not Currently 0 (1 standard drink = 0.6 oz pur e alcohol) no etho since 2021 Social Connections Answer Date Recorded Do you often feel lonely or isolated from those around you? 0 03/23/2024 Financial Resource Strain Answer Date R ecorded Difficulty of Paying Living Expenses 3 03/23/2024 Difficulty of Paying Living Expenses Not on file 03/23/2024 Food Insecurity Answer Date Recorded Do you worry your food will run out before you are able to buy more? 1 03/23/2024 Transportation Needs Answer Date Record ed Does lack of transportation keep you from medica l appointments? 1 03/23/2024 Does lack of transportation keep you from work, meetings or getting things that you need? 1 03/23/2024 Housing Stability Answer Date Recorded What is your housing situation today? 1 03/23/2024 Utilities Answer Date Recorded Do you have trouble paying f or utilities (for example, heat, electricity, water, phone)? 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 Gender Identity Not on file Sexual Orientation Not on file Obstetrics History Last Filed Vital Signs Vital Sign Reading Time Taken Comments Blood Pressure 112/74 03/23/2024 10:45 AM CDT Pulse 100 03/23/2024 10:45 AM CDT Temperature 37.2 C (98.9 F) 02/07/2023 1:07 PM CDT Respiratory Rate - - Oxygen Saturation 100% 12/02/2023 12:41 PM CDT Inhaled Oxygen Concentration - - Weight 74.8 kg (165 lb) 03/23/2024 10:45 AM CDT Height 177 cm (5' 9.69) 03/23/2024 10:45 AM CDT Body Mass Index 23.89 03/23/2024 10:45 AM CDT Plan of Treatment Health Maintenance Due Date Last Done Comments Pneumococcal series for age 6-49 (1 of 2 - PCV) 2010 Depression screening for age 12+ 08/26/2018 08/26/20 17 COVID-19 vaccine series ( - season) 2024 03/30/2021 Influenza for age 9-49 04/29/2024 BMI (ht and wt on same day) for age 18+ 03/23/2025 03/23/2024, 08/26/2017 Tetanus booster 09/01/2033 09/01/2023, 0 12/2012, 02/06/2009, Additional history exists Tdap Completed 09/01/2023, 0 12/2012, 02/06/2009 HIV for age 15-65 Completed 03/23/2024, 12/02/2023 Hepatitis C screening for ag e 18-79 Completed 03/23/2024, 12/02/2023 Procedures Procedure Name Priority Date/Time Associated Diagnosis Comments ANTI HIV 1/2 Routine 03/23/2024 11:09 AM CDT Screening examination for STD (sexually transmitted disease) ANTI HCV Routine 03/23/2024 11:09 AM CDT Screening examination for STD (sexually transmitted disease) from Last 3 Months or Most Recently Relevant to Health Maintenance Results * ANTI HCV (03/23/2024 11:09 AM CDT) HEPATITIS C ANTIBODY Non-Reacti ve Non-React savi 03/24/2024 12:14 AM CDT [facility] Comment:Please note, per www .CDC.gov: If a patient is known to be at high risk of HCV infection, or is symptomatic, and the physician's suspicion of HCV infection is high, HCV RNA testing is often employed and is of diagnostic value, even after an initial negative anti-HCV test result. Blood BLOOD SPECIMEN / Unknown Venipuncture / Unknown 03/23/2024 11:09 AM CDT 03/23/2024 11:09 AM CDT us Ivana Lew NP SEND OUTS Final Result [facility] [address] [place] [address], * ANTI HIV 1/2 (03/23/2024 11:09 AM CDT) HIV-1/HIV-2 SCREEN Non-Reacti ve Non-Reacti ve 03/24/2024 12:24 AM CDT [facility] Comment:HIV-1 p24 and HIV-1/ HIV-2 Ab Not Detected. Blood BLOOD SPECIMEN / Unknown Venipuncture / Unknown 03/23/2024 11:09 AM CDT 03/23/2024 11:09 AM CDT Ivana Lew OYSTER BUYER SEND OUTS Final Result [facility] [address] [place] [address], from Last 3 Months or Most Recently Relevant to Health Maintenance Insurance [facility] [place] Care Teams Brush Polisher Relationship Specialty Start Date End Date Pcp, No . PCP - General 09/22/10
--- OUTSIDE RECORDS SUMMARY | 2024-09-30 18:07 | XMS_ITS | Referral Summary ---
Author Organization [facility] Address [address] [place] [address]. 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 Gender Identity Not on file Sexual Orientation Not on file Last Filed Vital Signs Vital Sign Reading Time Taken Comments Blood Pressure 120/70 10/19/2019 2:48 PM SPINAL SURGEON Pulse 97 10/19/2019 2:48 PM SPINAL SURGEON Temperature 36.8 C (98.2 F) 10/19/2019 2:48 PM SPINAL SURGEON Respiratory Rate 16 10/19/2019 2:48 PM SPINAL SURGEON Oxygen Saturation 98% 10/19/2019 2:48 PM SPINAL SURGEON Inhaled Oxygen Concentration - - Weight 74.4 kg (164 lb) 10/19/2019 2:48 PM SPINAL SURGEON Height 177.8 cm (5' 10) 10/19/2019 2:48 PM SPINAL SURGEON Body Mass Index 23.53 10/19/2019 2:48 PM SPINAL SURGEON Plan of Treatment Not on file Care Teams Video Game Animator Relationship Specialty Start Date End Date No Ref-Primary, Physician PCP - General 10/19/19
--- OUTSIDE RECORDS SUMMARY | 2024-09-30 18:07 | XMS_ITS | Clinical Summary ---
Author Organization [facility] Address [address] [place] [id number] Care Team Providers Care Legal Analyst Name Role Phone None Reported, Pcp Primary Care Provider Unavail able Source Comments Patient records contain information from all sites at [facility]. For routine questions regarding patient records, call [phone] during business hours, M-F 8:00 AM - 5:00 PM Central Time. Record requests for emergency care only can be directed to [phone] at any time.[facility] Allergies No known active allergies Medications No known medications Active Problems Problem Noted Date Diagnosed Date Fracture Mandible Closed Initial 04/09/2013 02/04/2023 Nicotine Dependence Unspecified 10/06/2011 02/04/2023 Social History Tobacco Use Types Packs/Day Years Used Date Smoking Tobacco: Every Day Cigarettes Tobacco Cessation:Ready to Q uit: Not Asked; Counseling Given: Not Answered Nutrition Answer Date Recorded Nutrition: EVOO Fat Source Unknown 02/04 Nutrition: Servings of Fruits/Vegetables per Day Not on file 02/04/2023 Dental Answer Date Recorded Dental: Regular Dentist Unknown 02/05/20 23 Sex and Gender Information Value Date Recorded Sex Assigned at Not on file Legal Sex Male 5:25 PM BACKUP ENGINEER Gender Identity Not on file Sexual Orientation Not on file Last Filed Vital Signs Vital Sign Reading Time Taken Comments Blood Pressure 124/82 02/04/2023 6:30 PM CDT Pulse 85 02/04/2023 6:45 PM CDT Temperature 37.5 C (99.5 F) 02/04/2023 6:48 PM CDT Respiratory Rate 16 02/04/2023 6:48 PM CDT Oxygen Saturation 98% 02/04/2023 6:45 PM CDT Inhaled Oxygen Concentration - - Weight 80.1 kg (176 lb 9.4 oz) 02/04/2023 3:34 P M CDT Height 177.8 cm (5' 10) 02/04/2023 3:34 PM CDT Body Mass Index 25.34 02/04/2023 3:34 PM CDT Plan of Treatment Health Maintenance Due Date Last Done Comments HIV Screening 1991 Hepatitis C Screening 1991 Tobacco Cessation counseling 1991 Pneumococcal vaccine (0-49 years) (1 of 2 - PCV) 2010 COVID-19 Vaccine (2 - 2023- season) 2024 03/30/2021 Influenza Vaccine (#1) 2024 Depression Screening (Annual PHQ-2) 08/29/2024 DTaP,Tdap,and Td Vaccines (6 - Td or Tdap) 09/01/2033 09/01/2023, 04/02/2013, 02/06/2009, Additional history exists Hepatitis B Vaccines Completed 02/12/2003, 01/11/2002, 11/27/2001 HPV Vaccines Aged Out No longer eligi ble based on patient's age to complete this topic IPV Vaccines Aged Out No longer eligi ble based on patient's age to complete this topic Insurance [employer] Care Teams Legal Analyst Relationship Specialty Start Date End Date None Reported, Pcp PCP - General Family Medicine 02/04/23
[2024-09-30 18:30] VITALS: BP 113/79; PULSE 118; RESP 16; TEMP 37.8; O2SAT 97; BMI 23.7
--- NOTE | 2024-09-30 19:09 | ED_ITS ---
HPI - Headache General Chief Complaint: Headache/Migraine Stated Complaint: Migraine Time Seen by Provider: 09/30/24 18:06 History of Present Illness HPI Narrative: This 34-year-old male comes in with his mother because of a headache that began this morning, about 12 hours ago. He states that he does have history of headaches but this 1 is more intense. He reports sensitivity to light and nausea symptoms. He does not have any neurologic deficits. Related Data Home Medications ?Medication ?Instructions ?Recorded ?Confirmed No Known Home Medications 09/30/24 09/30/24 Allergies Allergy/AdvReac Type Severity Reaction Status Date / Time No Known Drug Allergies Allergy Verified 09/30/24 18:29 Review of Systems Status of ROS: Reports: 10 or more systems reviewed and unremarkable except as noted in History and below Narrative: Constitutional: No fevers, no weight gain or loss. Eyes: No discharge. No vision changes. HENT: No congestion, no sore throat, no ear pain. Cardiovascular: No chest pain, no palpitations. Respiratory: No shortness of breath, no wheezes, no cough. Gastrointestinal: No abdominal pain, no vomiting, no diarrhea. Genitourinary: No dysuria, no hematuria. Musculoskeletal: Normal range of motion. Skin: No rashes, no pruritis. Neurological: No dizziness, weakness, sensory change, speech change. Endo/Heme/Allergies: No bruising or bleeding. No polydipsia. Pysch: no suicidality, no anxiety, no insomnia. All other systems reviewed and are negative. [facility] Social History Smoking Status: Never smoker How often do you have a drink containing alcohol: never AUDIT-C Alcohol total score: 0 Non-prescribed substance use: denies use Exam Narrative: Exam Narrative: Constitutional: Well-developed, well-nourished. HEENT: Normocephalic, atraumatic. Neck: Normal range of motion. Nontender. Supple. Heart: Regular. No murmurs. Normal rate. Intact distal pulses. Lungs: Clear to auscultation. No chest discomfort. No wheezes, rhonchi, or rales. Abdomen: Normal bowel sounds. Nontender. No rebound tenderness. Genitalia: Deferred. Back: No midline tenderness. Normal range of motion. Extremities: Normal range of motion. No injury. Skin: Intact. No rash. Warm. No erythema or pallor. Neurologic: No altered sensation. No weakness. Alert and oriented. Psychiatric: No suicidality. No anxiety or depression. No insomnia. Nursing notes and vitals signs are reviewed. Const: Vital Signs, click to edit/add: Vital Signs - 24 hr 09/30/24 18:30 09/30/24 19:27 Temperature 100.0 F H Pulse Rate [Pulse Oximeter] 118 H 92 Respiratory Rate 16 18 Blood Pressure [Ri ght Upper Arm] 113/79 Pulse Oximetry 97 99 Oxygen Delivery Me thod Room Air Course Vital Signs Vital signs: Initial Vital Signs Temperature 100.0 F H 09/30/24 18:30 Temperature Source Temporal Artery Scan 09/30/24 18:30 Pulse Rate 118 H 09/30/24 18:30 Pulse Rhythm Regular 09/30/24 18:30 Respiratory Rate 16 09/30/24 18:30 Blood Pressure 113/79 09/30/24 18:30 Blood Pressure Mean 90 09/30/24 18:30 Blood Pressure Position Sitting 09/30/24 18:30 Pulse Oximetry 97 09/30/24 18:30 Oxygen Delivery Method Room Air 09/30/24 18:30 Vital Signs Temperature 100.0 F H 09/30/24 18:30 Pulse Rate 118 H 09/30/24 18:30 Respiratory Rate 16 09/30/24 18:30 Blood Pressure 113/79 09/30/24 18:30 Pulse Oximetry 97 09/30/24 18:30 Oxygen Delivery Method Room Air 09/30/24 18:30 Temperature 100.0 F H 09/30/24 18:30 Pulse Rate 92 09/30/24 19:27 Respiratory Rate 18 09/30/24 19:27 Blood Pressure 113/79 09/30/24 18:30 Pulse Oximetry 99 09/30/24 19:27 Oxygen Delivery Method Room Air 09/30/24 18:30 Medications Administered Medications: Discontinued Medications Generic Name Dose Route Start Last Admin Trade Name Freq PRN Reason Stop Dose Admin Diphenhydramine HCl 50 mg 09/30/24 19:11 09/30/24 19:23 Diphenhydramine 50 Mg/Ml Inj IVP 09/30/24 19:12 50 mg ONCE ONE Administration Ketorolac Tromethamine 30 mg 09/30/24 19:11 09/30/24 19:23 Ketorolac 30 Mg/Ml Inj IVP 09/30/24 19:12 30 mg ONCE ONE Administration Ondansetron HCl 4 mg 09/30/24 19:11 09/30/24 19:23 Ondansetron 2 Mg/Ml Inj IVP 09/30/24 19:12 4 mg ONCE ONE Administration MDM - Headache MDM Narrative Medical decision making narrative: This patient comes in with headache and generalized malaise as described above. A nasal pharyngeal swab returns positive for COVID. The patient did receive IV doses of Zofran, Toradol, and Benadryl. This brought sufficient relief to his symptoms. Just before discharge she also received an IV dose of methylprednisolone 125 mg. He is okay to be discharged home and a prescription for Toradol as provided from [facility]. Lab Data Labs: Lab Results 09/30/24 Range/Units 18:35 SARS-CoV-2 (PCR) POSITIVE SARS-CoV-2 A (Negative) Influenza Type A (PCR) Negative PCR FLU A (Negative) Influenza Type B (PCR) Negative PCR FLU B (Negative) RSV (PCR) Negative PCR RSV (Negative) Discharge Plan Discharge Clinical Impression: COVID-19 Patient Disposition: Home w/ Parent or Adult Condition: Stable Additional Instructions: Take medication as needed and directed. Follow up with MD return if worsening. Prescriptions: No Action No Known Home Medications Follow Up/Referrals: Provider,Not a Local [Primary Care Provider] - Stand Alone Forms: [employer] Info Instructions
[2024-09-30 19:20] LABS: PCR FLU A Negative PCR FLU A (Negative); PCR FLU B Negative PCR FLU B (Negative); PCR RSV Negative PCR RSV (Negative); SARS PCR* POSITIVE SARS-CoV-2 (Negative)
[2024-09-30] MEDS: ONDANSETRON 2 MG/ML inj 4 MG IVP (19:23)
[2024-09-30] MEDS: KETOROLAC 30 MG/ML inj IVP (19:23)
[2024-09-30] MEDS: diphenhydrAMINE 50 MG/ML inj IVP (19:23)
[2024-09-30 19:27] VITALS: PULSE 92; RESP 18; O2SAT 99
--- OUTSIDE RECORDS SUMMARY | 2024-09-30 19:40 | XMS_ITS | Clinical Summary ---
Author Organization [facility] Address [address] [place] [id number] Care Team Providers Care Mat Gauger Name Role Phone None Reported, Pcp Primary Care Provider Unavail able Source Comments Patient records contain information from all sites at [facility]. For routine questions regarding patient records, call [phone] during business hours, M-F 8:00 AM - 5:00 PM Central Time. 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
--- OUTSIDE RECORDS SUMMARY | 2024-09-30 19:40 | XMS_ITS | Referral Summary ---
Author Organization [facility] Address [address] [place] [address]. 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 Gender Identity Not on file Sexual Orientation Not on file Last Filed Vital Signs Vital Sign Reading Time Taken Comments Blood Pressure 120/70 10/19/2019 2:48 PM COIL WINDER Pulse 97 10/19/2019 2:48 PM COIL WINDER Temperature 36.8 C (98.2 F) 10/19/2019 2:48 PM COIL WINDER Respiratory Rate 16 10/19/2019 2:48 PM COIL WINDER Oxygen Saturation 98% 10/19/2019 2:48 PM COIL WINDER Inhaled Oxygen Concentration - - Weight 74.4 kg (164 lb) 10/19/2019 2:48 PM COIL WINDER Height 177.8 cm (5' 10) 10/19/2019 2:48 PM COIL WINDER Body Mass Index 23.53 10/19/2019 2:48 PM COIL WINDER Plan of Treatment Not on file Care Teams Pattern Vault Clerk Relationship Specialty Start Date End Date No Ref-Primary, Physician PCP - General 10/19/19
--- OUTSIDE RECORDS SUMMARY | 2024-09-30 19:40 | XMS_ITS | Clinical Summary ---
Author Organization [facility] Address [address] [place] [address]. 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 Gender Identity Not on file Sexual Orientation Not on file Last Filed Vital Signs Vital Sign Reading Time Taken Comments Blood Pressure 120/70 10/19/2019 2:48 PM UTILITY SALES AND SERVICE MANAGER Pulse 97 10/19/2019 2:48 PM UTILITY SALES AND SERVICE MANAGER Temperature 36.8 C (98.2 F) 10/19/2019 2:48 PM UTILITY SALES AND SERVICE MANAGER Respiratory Rate 16 10/19/2019 2:48 PM UTILITY SALES AND SERVICE MANAGER Oxygen Saturation 98% 10/19/2019 2:48 PM UTILITY SALES AND SERVICE MANAGER Inhaled Oxygen Concentration - - Weight 74.4 kg (164 lb) 10/19/2019 2:48 PM UTILITY SALES AND SERVICE MANAGER Height 177.8 cm (5' 10) 10/19/2019 2:48 PM UTILITY SALES AND SERVICE MANAGER Body Mass Index 23.53 10/19/2019 2:48 PM UTILITY SALES AND SERVICE MANAGER Plan of Treatment Health Maintenance Due Date [...] age to complete this topic Care Teams Accounts Receivable Administrator Relationship Specialty Start Date End Date No Ref-Primary, Physician PCP - General 10/19/19
--- OUTSIDE RECORDS SUMMARY | 2024-09-30 19:40 | XMS_ITS | Clinical Summary ---
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 [place] [address], * ANTI HIV 1/2 (03/23/2024 11:09 AM CDT) HIV-1/HIV-2 SCREEN Non-Reacti ve Non-Reacti ve 03/24/2024 12:24 AM CDT [facility] Comment:HIV-1 p24 and HIV-1/ HIV-2 Ab Not Detected. Blood BLOOD SPECIMEN / Unknown Venipuncture / Unknown 03/23/2024 11:09 AM CDT 03/23/2024 11:09 AM CDT Ivana Lew TRAVELING PHLEBOTOMIST SEND OUTS Final Result [facility] [address] [place] [address], from Last 3 Months or Most Recently Relevant to Health Maintenance Insurance [facility] [place] Care Teams Legal Paraprofessional Relationship Specialty Start Date End Date Pcp, No . PCP - General 09/22/10
[2024-09-30] MEDS: METHYLPREDNISOLONE SOD SUCC 62.5 MG/ML (125) 125 MG IVP (20:20)
[2024-09-30 20:24] VITALS: PULSE 102; RESP 16; O2SAT 100
== END 2024-09-30 20:33 | disposition home or self-care (01) ==
PROVIDERS: Emergency Provider Emergency Medicine Emergency Medical Services
DX: U07.1 COVID-19 (principal)
CPT/HCPCS: 87631; 96374; 96375; 99284; J1200; J1885; J2405; J2919